=== PATIENT | male | born 2005 | race Caucasian/White ===

== ENCOUNTER 2025-06-24 10:29 | Emergency (ER) | payer OTHER, BC, SELFPAY ==
[2025-06-24 10:40] VITALS: BP 133/84; PULSE 69; TEMP 36.6; O2SAT 96; BMI 32.1
[2025-06-24] MEDS: 0.9 % SODIUM CHLORIDE 1,000 ML 999 ML IV (11:01)
[2025-06-24 11:16] LABS: Hematocrit 44.7 % (42.0-54.0); Hemoglobin 15.3 g/dL (14.0-18.0); Immature Granulocytes Abs Auto 0.10 10^3/uL (0.00-0.03); Immature Granulocytes Pct Auto 1.2 % (0.0-0.5); Lymphocytes Absolute Auto 2.8 10^3/uL (1.2-3.8); Mean Corpuscular HGB Conc 34.2 g/dL (29.9-35.2); Mean Corpuscular Hemoglobin 28.3 pg (25.9-34.0); Mean Corpuscular Volume 82.8 fL (80.0-94.0); Platelet Count 238 10^3/uL (150-450); Red Blood Count 5.40 10^6/uL (4.70-6.10); White Blood Count 8.2 10^3/uL (4.0-11.0)
[2025-06-24 11:27] LABS: SARS-CoV-2 Ag NEGATIVE (NEGATIVE)
[2025-06-24 11:32] LABS: Alanine Aminotransferase 73 U/L (16-63); Albumin Globulin Ratio 1.2; Albumin Level 4.1 g/dL (3.4-5.0); Alkaline Phosphatase 77 U/L (46-116); Anion Gap 13.4; Aspartate Amino Transferase 26 U/L (15-37); Blood Urea Nitrogen 11.0 mg/dL (7.0-18.0); Calcium 9.4 mg/dL (8.5-10.1); Carbon Dioxide 28.3 mmol/L (21.0-32.0); Chloride 102 mmol/L (98-107); Estimated GFR (African America >60 (>=60 mL/min/1.73m^2); Estimated GFR (Non-African Ame >60 (>=60 mL/min/1.73m^2); Globulin 3.5 g/dL; Glucose 85 mg/dL (74-106); Potassium 3.7 mmol/L (3.5-5.1); Sodium 140 mmol/L (136-145); Total Protein 7.6 g/dL (6.4-8.2)
--- NOTE | 2025-06-24 13:00 | ED.GENADUL1 ---
HPI HPI - General Adult General Chief complaint: Nausea/Vomiting/Diarrhea Stated complaint: VOMITING, BODY ACHES, HEADACHE, FATIGUE Time Seen by Provider: 06/24/25 10:46 Source: patient Mode of arrival: walk-in Limitations: no limitations History of Present Illness HPI narrative: cc - multiple complaints About 10 days ago, the patient developed flu like symptoms - nausea, body aches, and headache. He said that he thought it would go away on its own and that he frequently gets headaches. He came in today because he didn't get any better . No blood in urine or stool but he said he saw flecks of blood in the vomit. He does not take anything for acid imbalance in the stomach. No prior history of GI complaints or symptoms but my dad has diverticulitis . 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 No travel outside of the country in the last few months. Related Data Previous Rx's ?Medication ?Instructions ?Recorded ondansetron 4 mg disintegrating 4 mg PO Q6H PRN nausea and 06/24/25 tablet vomiting #20 tabs pantoprazole 40 mg tablet,delayed 40 mg PO DAILY #30 tabs 06/24/25 release (Protonix) Allergies Allergy/AdvReac Type Severity Reaction Status Date / Time No Known Drug Allergies Allergy Verified 06/24/25 10:43 Opioid HPI Opioid Management Most Recent Opioid Data: Last Pain Scale 6 Today, 10:40 PFSH PFSH Social History Little interest or pleasure in doing things: not at all Feeling down, depressed, or hopeless: not at all Exam Narrative Exam Narrative: Nurses notes and vital signs reviewed and patient is not hypoxic. afebrile General: Well-appearing and in no apparent distress. Skin: Warm, dry, no pallor noted. No rash. Head: Normocephalic, atraumatic. Neck: Supple, non-tender. No meningismus. No lymphadenopathy. Eye: Pupils are equal, round and EOMI. No scleral icterus. Ears, Nose, Mouth, and Throat: Oral mucosa is dryt Cardiovascular: Regular Rate and Rhythm without murmur, gallop or rub. Respiratory: No accessory muscle use or respiratory distress. Lungs are clear to auscultation, no wheezing, rales or rhonchi Back: No CVA tenderness Musculoskeletal: normal ROM, no calf or popliteal tenderness, no lower extremity edema/swelling GI: Abdomen is soft, non-distended. Normal bowel sounds. No masses appreciated. No tenderness to palpation. No rebound, guarding, or rigidity noted. Neurological: A&O x4. No cranial nerve dysfunction observed. No truncal ataxia. Moves all extremities. Sensation intact. Psychiatric: Cooperative and interactive. Normal mood and affect. Constitutional Vital Signs, click to edit/add: Last Vital Signs Temp 97.8 F 06/24/25 10:40 Pulse 69 06/24/25 10:40 Resp 18 06/24/25 10:40 BP 133/84 06/24/25 10:40 Pulse Ox 96 06/24/25 10:40 Course Vital Signs Vital signs: Vital Signs Temperature 97.8 F 06/24/25 10:40 Pulse Rate 69 06/24/25 10:40 Respiratory Rate 18 06/24/25 10:40 Blood Pressure 133/84 06/24/25 10:40 Pulse Oximetry 96 06/24/25 10:40 Temperature 97.8 F 06/24/25 10:40 Pulse Rate 69 06/24/25 10:40 Respiratory Rate 18 06/24/25 10:40 Blood Pressure 133/84 06/24/25 10:40 Pulse Oximetry 96 06/24/25 10:40 Medical Decision Making MDM Narrative Medical decision making narrative: Peripheral IV established blood drawn and sent for testing. The patient was also swabbed for COVID and influenza. He was given a liter of normal saline IV fluid and IV Zofran. Blood tests were normal and the swabs for influenza and COVID were negative. On recheck at 12:30 PM, the patient told me that his nausea improved but had not resolved entirely and that his headache was still prominent. We talked about the results of his exam as well as his blood tests and swab results. I do not anticipate that he has diverticulitis due to a lack of abdominal tenderness. I believe he has gastritis and that the vomiting has been the cause of the flecks of blood that he has noted. He has not had any recent head trauma, fall or injury and the headache is typical, not explosive or worsening, no neurological deficit is noted and I do not believe he has subarachnoid hemorrhage or any other worrisome intracranial pathology. I did offer to CT scan his head and to also get a CT scan of the abdomen pelvis but he declined. My recommendation is to follow-up with a coloring room man, maintain a clear liquid diet with soft bland foods to eat, take PPI and antiemetic as prescribed -he can return to the ED if he worsens and this treatment regiment does not improve his symptoms. He was given IV Toradol and IV Solu-Medrol for his headache before discharge home. Lab Data Lab results reviewed: Yes I reviewed the patient's lab results Labs: Lab Results 06/24/25 06/24/25 Range/Units 11:00 11:10 WBC 8.2 (4.0-11.0) 10^3/uL RBC 5.40 (4.70-6.10) 10^6/uL Hgb 15.3 (14.0-18.0) g/dL Hct 44.7 (42.0-54.0) % MCV 82.8 (80.0-94.0) fL MCH 28.3 (25.9-34.0) pg MCHC 34.2 (29.9-35.2) g/dL RDW 12.6 (11.0-15.0) % Plt Count 238 (150-450) 10^3/uL MPV 10.8 (9.5-13.5) fL Neut % (Auto) 54.9 (43.0-75.0) % Lymph % (Auto) 34.1 (20.5-60.0) % [place] % (Auto) 7.4 (1.7-12.0) % Eos % (Auto) 1.9 (0.9-7.0) % Baso % (Auto) 0.5 (0.2-2.0) % Neut # (Auto) 4.5 (1.4-6.5) 10^3/uL Lymph # (Auto) 2.8 (1.2-3.8) 10^3/uL [place] # (Auto) 0.6 (0.3-0.8) 10^3/uL Eos # (Auto) 0.2 (0.0-0.7) 10^3/uL Baso # (Auto) 0.0 (0.0-0.1) 10^3/uL Abs Immat Gran (auto) 0.10 H (0.00-0.03) 10^3/uL Imm/Tot Granulo (auto) 1.2 H (0.0-0.5) % Sodium 140 (136-145) mmol/L Potassium 3.7 (3.5-5.1) mmol/L Chloride 102 (98-107) mmol/L Carbon Dioxide 28.3 (21.0-32.0) mmol/L Anion Gap 13.4 BUN 11.0 (7.0-18.0) mg/dL Creatinine 1.05 (0.70-1.30) mg/dL Est GFR ( Amer) >60 (>=60 mL/min/1.73m^2) Est GFR (Non-Af Amer) >60 (>=60 mL/min/1.73m^2) BUN/Creatinine Ratio 10.5 Glucose 85 (74-106) mg/dL Calcium 9.4 (8.5-10.1) mg/dL Total Bilirubin 0.4 (0.2-1.0) mg/dL AST 26 (15-37) U/L ALT 73 H (16-63) U/L Alkaline Phosphatase 77 (46-116) U/L Total Protein 7.6 (6.4-8.2) g/dL Albumin 4.1 (3.4-5.0) g/dL Globulin 3.5 g/dL Albumin/Globulin Ratio 1.2 Influenza Type A Ag Negative Influenza Type B Ag Negative SARS-CoV-2 Ag (CV2AG) Negative (NEGATIVE) Discharge Plan Discharge Chief Complaint: Nausea/Vomiting/Diarrhea Clinical Impression: Gastritis, Acute viral syndrome, Headache Patient Disposition: Home, Self-Care Time of Disposition Decision: 13:08 Prescriptions / Home Meds: New pantoprazole [Protonix] 40 mg tablet,delayed release (DR/EC) 40 mg PO DAILY Qty: 30 0RF ondansetron 4 mg tablet,disintegrating 4 mg PO Q6H PRN (Reason: nausea and vomiting) Qty: 20 0RF Print Language: Pakistani Instructions: Gastritis (ED), Acute Headache (ED), Viral Syndrome (ED) Referrals: Debbie Boyd MD [Physician] - As soon as possible
[2025-06-24] MEDS: METHYLPREDNISOLONE SOD SUCC PF 125 MG/2 ML VIAL IVP (13:12)
[2025-06-24] MEDS: KETOROLAC TROMETHAMINE 30 MG/ML VIAL IVP (13:12)
== END 2025-06-24 13:29 | disposition home or self-care (01) ==
PROVIDERS: Emergency Provider Emergency Medicine; PCP Family Medicine
DX: K29.70 Gastritis, unspecified, without bleeding (principal); R51.9 Headache, unspecified; B34.9 Viral infection, unspecified
CPT/HCPCS: 36415; 80053; 85025; 87804; 87811; 96361; 96374; 96375; 99284; J1885; J2405; J2919